=== PATIENT | female | born 1970 | race Caucasian/White ===

== ENCOUNTER 2017-06-07 06:43 | Day surgery (SDC) | payer OTHER ==
[2017-06-06 08:22] VITALS: BMI 25.0
[~2017-06-07 06:43] MED LIST: DEXAMETHASONE SOD PHOSPHATE 10 MG/ML 1 ML VIAL IV ONE; HEPARIN SODIUM,PORCINE 5,000 UNIT/ML 1 ML VIAL SQ ONE; LACTATED RINGERS 1,000 ML IV SCH; MIDAZOLAM 2 MG/2 ML VIAL IV PRN; ONDANSETRON 4 MG/2 ML VIAL IVP ONE; Pre Op ABX Message 1 EACH MISC MISCELLANE ONE; SCOPOLAMINE 1.5MG/72HR PATCH TRANSDERM ONE; fentaNYL (PF) 50 MCG/ML 2 ML AMP IV PRN
[2017-06-07] MEDS ORDERED: LIDOCAINE 1% 20 ML VIAL (10MG/ML) FOR IV START INTRADERMA ONE (07:30)
--- NOTE | 2017-06-07 07:50 | P.GSHP ---
History of Present Illness H&P Date: 06/07/17 Chief Complaint: Abnormal right mammogram Patient here today for right breast wire localization biopsy. She had a core biopsy performed at [facility]. Pathology showed an abnormality requiring wide excision. The patient had declined having the procedure done until now because she was unable to take time off of work. This all started after mammogram showed suspicious calcifications with distortion at 6:00. Ultrasound showed a solid lesion and that was what was biopsied. Past Medical History Additional Past Medical History / Comment(s): hx of indra breast cyst, overactive bladder History of Any Multi-Drug Resistant Organisms: None Reported Past Surgical History: Breast Surgery Additional Past Surgical History / Comment(s): indra breast cyst removed Past Anesthesia/Blood Transfusion Reactions: No Reported Reaction Smoking Status: Current every day smoker - Past Family History Sister(s) Family Medical History: Cancer Additional Family Medical History / Comment(s): 2 sisters with breast ca, one with bone Mother Family Medical History: Cancer Additional Family Medical History / Comment(s): multiple kinds Father Family Medical History: Cancer Additional Family Medical History / Comment(s): bladder and kidney ca Medications and Allergies Home Medications Medication Instructions Recorded Confirmed Type No Known Home Medications [No 06/06/17 06/07/17 History Known Home Medications] Allergies Allergy/AdvReac Type Severity Reaction Status Date / Time hydrocodone [From Lortab] Allergy Rash/Hives Verified 06/07/17 07:18 Penicillins Allergy Rash/Hives Verified 06/07/17 07:18 sulfamethoxazole Allergy Rash/Hives Verified 06/07/17 07:18 [From Bactrim] trimethoprim [From Bactrim] Allergy Rash/Hives Verified 06/07/17 07:18 Surgical - Exam Vital Signs Temp Pulse Resp BP Pulse Ox 98.3 F 6 L 16 114/67 97 06/07/17 07:17 06/07/17 07:17 06/07/17 07:17 06/07/17 07:17 06/07/17 07:17 Physical exam: General: Well-developed, well-nourished HEENT: Normocephalic, sclerae nonicteric Abdomen: Nontender, nondistended Extremities: No edema Neuro: Alert and oriented Right breast, no masses, no adenopathy Left breast, no masses, no adenopathy Assessment and Plan (1) Abnormality of right breast on screening mammogram Narrative/Plan: Will proceed with right breast for localization biopsy. Current Visit: Yes Status: Acute Code(s): R92.8 - OTH ABN AND INCONCLUSIVE FINDINGS ON DX IMAGING OF BREAST SNOMED Code(s): 500800956
[2017-06-07] MEDS ORDERED: ALPRAZolam 0.5 MG TAB PO ONE (07:54)
[2017-06-07] MEDS ORDERED: KETOROLAC 30 MG/ML 1 ML VIAL ONE (09:28)
[2017-06-07] MEDS ORDERED: fentaNYL (PF) 50 MCG/ML 2 ML AMP ONE (09:28)
[2017-06-07] MEDS ORDERED: DEXAMETHASONE SOD PHOS (MDV) 100 MG/10 ML VIAL ONE (09:28)
[2017-06-07] MEDS ORDERED: MIDAZOLAM 2 MG/2 ML VIAL ONE (09:28)
[2017-06-07] MEDS ORDERED: PROPOFOL 10 MG/ML 20 ML VIAL IV ONE (09:28)
[2017-06-07] MEDS ORDERED: BUPIVACAINE (PF) 0.25% 30 ML VIAL SQ ONE ×2 (09:53)
[2017-06-07] MEDS ORDERED: NALOXONE 0.4 MG/ML 1 ML VIAL IV PRN (10:19)
--- NOTE | 2017-06-07 10:20 | P.PCN ---
Date of Procedure: 06/07/17 Procedure(s) Performed: PREOPERATIVE DIAGNOSIS: Abnormal right mammogram POSTOPERATIVE DIAGNOSIS: Same PROCEDURE: Right Breast wire localization biopsy SURGEON: Wilder EBL: Minimal ANESTHESIA: Sedation plus local COMPLICATIONS: None OPERATIVE PROCEDURE: Patient was placed on the operating room table in the supine position. The patient's breast was prepped and draped in usual sterile fashion. A curvilinear incision was made adjacent to the wire entrance site. I followed the wire down into the breast tissue. The breast tissue around the tip of the wire was fully excised using electrocautery. The specimen was sent for specimen radiogram. The clip was present within the specimen. The subcutaneous tissues were inspected. No bleeding was seen. The subcutaneous tissues were closed using 3-0 Vicryl sutures. The skin was closed using a running 4-0 Monocryl stitch. Steri-Strips and sterile dressings were applied. DISPOSITION: Stable to recovery room
[2017-06-07 10:32] VITALS: TEMP 97
[2017-06-07 10:38] VITALS: RESP 16
[2017-06-07 11:15] VITALS: BP 109/71
[2017-06-07 11:33] VITALS: PULSE 62
--- NOTE | 2017-06-07 15:53 | MM ---
EXAMINATION TYPE: MG pre op needle loc RT, MG surgical specimen RT DATE OF EXAM: 06/07/2017 8:51 AM COMPARISON: NONE HISTORY: High risk lesion Informed consent was obtained and all the patient's questions were answered. The clip and microcalcifications in question was localized mammographically. The standard sterile technique was utilized, as well as appropriate local anesthesia with 1% Lidocaine and bicarbonate. Localization needle followed by placement of a guidewire was performed under mammographic guidance. Verification images demonstrate appropriate deployment of the guidewire. The patient tolerated the procedure well and left the department in stable condition. Specimen radiograph demonstrates the clip and microcalcifications in question to reside within the specimen. IMPRESSION: Successful needle localization and open biopsy right breast with pathology results pending. Pathology Results: High Risk RIGHT BREAST MASS, NEEDLE LOCALIZATION BIOPSY: INTRADUCTAL PAPILLOMA WITH ASSOCIATED DUCT ECTASIA (PROLIFERATIVE BREAST LESION WITHOUT ATYPIA). Recommendation Follow up mammogram of the right breast in 6 months. CHRISTY
== END 2017-06-07 12:26 | disposition home or self-care (01) ==
LOC: OR 06:43
PROVIDERS: ATTEND Surgery
DX: D24.1 Benign neoplasm of right breast (principal); N60.41 Mammary duct ectasia of right breast; Z80.3 Family history of malignant neoplasm of breast; Z88.5 Allergy status to narcotic agent; Z88.0 Allergy status to penicillin; Z88.2 Allergy status to sulfonamides; Z88.1 Allergy status to other antibiotic agents; F17.200 Nicotine dependence, unspecified, uncomplicated
CPT/HCPCS: 81025; 88307; 76098; 19281; 19125; J2250; J1644; J1100 ×2; J2405; J3010; J1885; J2704